=== PATIENT | male | born 1985 | race Two or more races ===

== ENCOUNTER 2018-08-11 17:53 | Emergency (ER) | payer SELFPAY ==
[~2018-08-11] VITALS: Ht 165.1 cm; Wt 77.1 kg
[2018-08-11 18:41] VITALS: BP 118/73
[2018-08-11] MEDS ORDERED: ACETAMINOPHEN 500 MG TAB PO ONE (19:00)
[2018-08-11] MEDS ORDERED: IBUPROFEN 600 MG TAB PO ONE (19:00)
== END 2018-08-11 19:48 | disposition home or self-care (01) ==
LOC: ER 17:53
DX: M62.830 Muscle spasm of back (principal); V49.49XA Driver injured in collision with other motor vehicles in traffic accident, initial encounter; Y93.89 Activity, other specified; Y99.8 Other external cause status; Y92.410 Unspecified street and highway as the place of occurrence of the external cause
CPT/HCPCS: 72040; 72100

== ENCOUNTER 2021-02-03 19:25 | Emergency (ER) | payer BC, OTHER ==
[~2021-02-03] VITALS: Ht 165.1 cm; Wt 81.6 kg
[2021-02-03 20:19] LABS: Basophils # (auto) 0.1 10 ^3/uL (0-0.2); Basophils % (auto) 0.7 % (0.0-2.0); Eosinophils # (auto) 0 10 ^3/uL (0-0.8); Eosinophils % (auto) 0.2 % (0.0-7.0); Hematocrit 44.5 % (41.0-53.0); Hemoglobin 15.5 g/dL (13.5-17.5); Lymphocytes # (auto) 2.8 10 ^3/uL (0.4-5.4); Lymphocytes % (auto) 27.6 % (10.0-50.0); Mean Corpuscular Hemoglobin 29.5 pg (28.0-32.0); Mean Corpuscular Hgb Conc. 34.8 g/dL (32.0-36.0); Mean Corpuscular Volume 84.7 fL (80.0-100.0); Monocytes # (auto) 0.6 10 ^3/uL (0-1.3); Monocytes % (auto) 5.9 % (0.0-12.0); Neutrophils # (auto) 6.6 10 ^3/uL (1.6-8.6); Neutrophils % (auto) 65.6 % (37.0-80.0); Nucleated Red Blood Cells % 0.1 %; Red Blood Cells 5.26 10^6/uL (4.5-5.90); Red Cell Distribution Width 13.5 % (11.8-14.3)
[2021-02-03 20:28] LABS: Albumin 3.9 g/dL (3.4-5.0); Calcium 9.1 mg/dL (8.5-10.1); Potassium 3.6 mmol/L (3.5-5.1)
[2021-02-03 20:31] LABS: Bilirubin, Total 0.3 mg/dL (0.2-1.0); Total Protein 7.6 g/dL (6.4-8.2)
[2021-02-03 21:10] VITALS: BP 140/78
== END 2021-02-03 21:12 | disposition home or self-care (01) ==
LOC: ER 19:26
DX: J06.9 Acute upper respiratory infection, unspecified (principal)
CPT/HCPCS: 36415; 71045; 80053; 85025